=== PATIENT | female | born 1980 | race Caucasian/White ===

== ENCOUNTER 2016-11-04 09:11 | Emergency (ER) | payer SELFPAY ==
[~2016-11-04 09:11] MED LIST: BACT800T5 PO; CEPH-460 PO
[2016-11-04 09:13] VITALS: BP 132/83; PULSE 78; RESP 18; TEMP 98.9; O2SAT 98
[2016-11-04] MEDS ORDERED: KETOROLAC TROMETHAMINE 30 MG/ML (IVP) VIAL IV PUSH ONE (09:30)
[2016-11-04] MEDS ORDERED: SODIUM CHLORID 0.9% 500 ML INJ 500 ML IV ONE ×2 (09:30→11:30)
--- NOTE | 2016-11-04 09:47 | PD ---
HPI Chief Complaint: GI Complaint Time Seen by Provider: 09:19 Travel History International Travel<30 days: No Contact w/Intl Traveler<30days: No Traveled to known affect area: No History of Present Illness HPI Patient is a 36-year-old female who comes in complaining of feeling unwell. She says she has not felt well for most of the week. She reports walking a lot because she has been out of work and looking for job. She says yesterday she felt very nauseous, and then she passed out and [employer]. She denies hitting her head. She says she feels some pain in her throat. She says she has aches all over her body. She had one episode of vomiting yesterday just before the syncopal episode. She denies any abdominal pain. He does report feeling some shortness of breath. She denies any chest pain. She has not had any fevers, but has felt warm. PFSH Past Medical History Bipolar Disorder: Yes Cirrhosis: Yes Hepatitis: Yes (C) Psychiatric: Yes (CHEMICAL IMBALANCE) ?: Not Ovarian Cysts: Yes Past Surgical History Other Surgery: Yes (LEFT OVARIAN CYST) Social History Alcohol Use: Yes (weekly ) Tobacco Use: Yes (1/2 ppd) Substance Use: Yes (marijuana, hx ivdu) Allergies-Medications (Allergen,Severity, Reaction): Coded Allergies: Cymbalta (Verified Allergy, Unknown, 08/05/16) Doxycycline (Verified Allergy, Unknown, 08/05/16) Metrogel (Verified Allergy, Unknown, 08/05/16) Reported Meds & Prescriptions Reported Meds & Active Scripts Active No Active Prescriptions or Reported Medications Review of Systems Except as stated in HPI: all other systems reviewed are Neg General / Constitutional: No: Fever, Chills Eyes: No: Blurred Vision HENT: Positive: Headaches Cardiovascular: No: Chest Pain or Discomfort Respiratory: Positive: Shortness of Breath Gastrointestinal: Positive: Vomiting, No: Abdominal Pain Genitourinary: No: Dysuria Musculoskeletal: Positive: Myalgias, Weakness Skin: No Rash, No Itching, No Change in Pigmentation Neurologic: No: Dizziness Physical Exam Narrative GENERAL: Awake and alert, in no acute distress. SKIN: Warm and dry. HEAD: Atraumatic. Normocephalic. EYES: Pupils equal and round. No scleral icterus. No injection or drainage. ENT: Mucous membranes pink and moist. No tonsillar swelling or exudates. No pharyngeal erythema or edema. NECK: Trachea midline. No JVD. CARDIOVASCULAR: Regular rate and rhythm. No murmur appreciated. RESPIRATORY: No accessory muscle use. Clear to auscultation. Breath sounds equal bilaterally. GASTROINTESTINAL: Abdomen soft, non-tender, nondistended. No fluid wave. MUSCULOSKELETAL: No obvious deformities. No clubbing. No cyanosis. No edema. NEUROLOGICAL: Awake and alert. No obvious cranial nerve deficits. Motor grossly within normal limits. Normal speech. PSYCHIATRIC: Appropriate mood and affect; insight and judgment normal. Data Data Last Documented VS Vital Signs Date Time Temp Pulse Resp B/P Pulse Ox O2 Delivery O2 Flow Rate FiO2 11/04/16 11:00 70 14 125/72 95 Room Air 11/04/16 09:13 98.9 Orders Complete Blood Count With Diff (11/04/16 09:29) Comprehensive Metabolic Panel (11/04/16 09:29) Lipase (11/04/16 09:29) Act Partial Throm Time (Ptt) (11/04/16 09:29) Prothrombin Time / Inr (Pt) (11/04/16 09:29) Troponin I (11/04/16 09:29) Urinalysis - C+S If Indicated (11/04/16 09:29) Ed Urine Pregnancytest Poc (11/04/16 09:29) Chest, Pa & Lat (11/04/16 ) Sodium Chlorid 0.9% 500 Ml Inj (Ns 500 M (11/04/16 09:30) Ketorolac Inj (Toradol Inj) (11/04/16 09:30) Iv Access Insert/Monitor (11/04/16 09:29) Sodium Chlorid 0.9% 500 Ml Inj (Ns 500 M (11/04/16 11:30) Labs Laboratory Tests Test 11/04/16 11/04/16 09:37 09:38 White Blood Count 8.8 TH/MM3 Red Blood Count 4.74 MIL/MM3 Hemoglobin 14.1 GM/DL Hematocrit 40.1 % Mean Corpuscular Volume 84.6 FL Mean Corpuscular Hemoglobin 29.7 PG Mean Corpuscular Hemoglobin 35.1 % Concent Red Cell Distribution Width 13.3 % Platelet Count 202 TH/MM3 Mean Platelet Volume 8.9 FL Neutrophils (%) (Auto) 65.6 % Lymphocytes (%) (Auto) 27.8 % Monocytes (%) (Auto) 5.2 % Eosinophils (%) (Auto) 0.9 % Basophils (%) (Auto) 0.5 % Neutrophils # (Auto) 5.8 TH/MM3 Lymphocytes # (Auto) 2.5 TH/MM3 Monocytes # (Auto) 0.5 TH/MM3 Eosinophils # (Auto) 0.1 TH/MM3 Basophils # (Auto) 0.0 TH/MM3 CBC Comment DIFF FINAL Differential Comment Prothrombin Time 10.5 SEC Prothromb Time International 1.0 RATIO Ratio Activated Partial 27.1 SEC Thromboplast Time Sodium Level 138 MEQ/L Potassium Level 4.0 MEQ/L Chloride Level 103 MEQ/L Carbon Dioxide Level 25.1 MEQ/L Anion Gap 10 MEQ/L Blood Urea Nitrogen 12 MG/DL Creatinine 0.69 MG/DL Estimat Glomerular Filtration 96 ML/MIN Rate Random Glucose 97 MG/DL Calcium Level 8.8 MG/DL Total Bilirubin 0.5 MG/DL Aspartate Amino Transf 32 U/L (AST/SGOT) Alanine Aminotransferase 63 U/L (ALT/SGPT) Alkaline Phosphatase 84 U/L Troponin I LESS THAN 0.02 NG/ML Total Protein 7.3 GM/DL Albumin 3.9 GM/DL Lipase 153 U/L Urine Color LIGHT-YELLOW Urine Turbidity HAZY Urine pH 6.5 Urine Specific [place] 1.006 Urine Protein NEG mg/dL Urine Glucose (UA) NEG mg/dL Urine Ketones NEG mg/dL Urine Occult Blood NEG Urine Nitrite NEG Urine Bilirubin NEG Urine Urobilinogen LESS THAN 2.0 MG/DL Urine Leukocyte Esterase LARGE Urine RBC 2 /hpf Urine WBC 5 /hpf Urine Squamous Epithelial 34 /hpf Cells Urine Transitional Epithelial <1 /hpf Cells Urine Bacteria OCC /hpf Urine Hyaline Casts 1 /lpf Microscopic Urinalysis Comment CULT NOT INDICATED MDM Medical Decision Making Medical Screen Exam Complete: Yes Emergency Medical Condition: Yes Medical Record Reviewed: Yes Interpretation(s) ECG shows normal sinus rhythm at 74, no ST elevation or depression, normal intervals. Differential Diagnosis Dehydration versus viral illness versus gastroenteritis Narrative Course Patient is a 36-year-old female comes in complaining of feeling unwell. Exam shows no acute abnormalities. ECG shows no signs of ischemia or other abnormalities. IV established, labs sent. Labs are within normal limits. Chest x-ray performed shows no acute abnormalities. Patient given IV fluids and Toradol. She states she still feels some soreness in her throat. I explained that her throat appears completely normal. Advised she may be experiencing postnasal drip noted by she can take [id number] allergy medications for this. Patient says she is comfortable to be discharged at this time. Advised to follow-up in the community clinics. Advised to return to the ED as needed for any worsening symptoms. Diagnosis Primary Impression: Viral illness Referrals: [facility] call for appointment [facility] call for appointment Additional Instructions: Drink plenty of fluids. Take Ibuprofen for pain or fever. Try over the counter allergy medications for throat symptoms. Follow up with a primary care physician. Return to the ED as needed for any worsening symptoms. Scripts No Active Prescriptions or Reported Meds Disposition: 01 DISCHARGE HOME Condition: Stable Litzy Whyte MD Nov 04, 2016 09:47
[2016-11-04 10:17] LABS: AUTOMATED NEUTROPHIL # 5.8 TH/MM3 (1.8-7.7); BASOPHIL % 0.5 % (0.0-2.0); EOSINOPHIL # 0.1 TH/MM3 (0-0.4); EOSINOPHIL % 0.9 % (0.0-4.0); HEMATOCRIT 40.1 % (35.0-46.0); HEMO FLAGS DIFF FINAL; LYMPH % 27.8 % (9.0-44.0); LYMPHOCYTE # 2.5 TH/MM3 (1.0-4.8); MEAN CELL VOLUME 84.6 FL (80.0-100.0); MEAN CORPUSCULAR HEMOGLOBIN 29.7 PG (27.0-34.0); MEAN CORPUSCULAR HGB CONC 35.1 % (32.0-36.0); MONO % 5.2 % (0.0-8.0); NEUT % 65.6 % (16.0-70.0); PLATELET COUNT 202 TH/MM3 (150-450); RED BLOOD COUNT 4.74 MIL/MM3 (4.00-5.30); RED CELL DISTRIBUTION WIDTH 13.3 % (11.6-17.2); WHITE BLOOD COUNT 8.8 TH/MM3 (4.0-11.0)
[2016-11-04 10:19] LABS: BACTERIA, URINE OCC /hpf; BLOOD, URINE NEG (NEG); GLUCOSE,URINE NEG (NEG); HYALINE CAST, URINE 1 /lpf (RARE); KETONE, URINE NEG (NEG); NITRITE,URINE NEG (NEG); PH, URINE 6.5 (5.0-8.5); SQUAMOUS EPITHELIAL CELL URINE 34 /hpf (0-5); TRANSITIONAL EPI CELLS, URINE <1 /hpf; URINE COLOR LIGHT-YELLOW (YELLW/STRAW)
[2016-11-04 10:23] LABS: APTT (PATIENT) 27.1 SEC (24.3-30.1); PROTHROMBIN TIME - PATIENT 10.5 SEC (9.8-11.6)
[2016-11-04 10:24] LABS: COMMENT (UR) CULT NOT INDICATED; CULTURE IF INDICATED CULT NOT INDICATED
[2016-11-04 10:38] LABS: ANION GAP 10 MEQ/L (5-15); AST (GOT) 32 U/L (15-37); BICARBONATE 25.1 MEQ/L (21.0-32.0); BLOOD UREA NITROGEN 12 MG/DL (7-18); CHLORIDE 103 MEQ/L (98-107); GLOMERULAR FILTRATION RATE 96 ML/MIN (>89); SODIUM (NA) 138 MEQ/L (136-145)
[2016-11-04 10:43] LABS: ALKALINE PHOSPHATASE 84 U/L (45-117); ALT (GPT) 63 U/L (10-53); TOTAL BILIRUBIN ADULT 0.5 MG/DL (0.2-1.0)
[2016-11-04 11:00] VITALS: BP 125/72; PULSE 70; RESP 14; O2SAT 95
--- NOTE | 2016-11-04 11:05 | RADRPT ---
EXAM DATE/TIME: 11/04/2016 10:17 [facility] COMPARISON: No previous studies available for comparison. INDICATIONS : Short of Breath MEDICAL HISTORY : Hepatitis C. SURGICAL HISTORY : None. ENCOUNTER: Initial ACUITY: 1 day PAIN SCORE: 0/10 LOCATION: Bilateral chest FINDINGS: PA and lateral views of the chest. The lungs are clear. Cardiomediastinal silhouette within normal li mits. No evidence of pleural effusion or pneumothorax. CONCLUSION: No acute cardiopulmonary disease identified. Marquise Cervantes MD on November 04, 2016 at 11:02 Board Certified Radiologist. This report was verified electronically.
[2016-11-04 12:30] VITALS: BP 120/66; PULSE 78; RESP 16; O2SAT 97
--- NOTE | 2016-11-04 16:35 | EKG ---
Date Performed: 11/04/2016 Time Performed: 09:21:49 PTAGE: 36 years EKG: Sinus rhythm POSSIBLE RIGHT VENTRICULAR CONDUCTION DELAY BORDERLINE ECG NO PREVIOUS TRACING DOCTOR: Hugo Mccarthy Interpretating Date/Time 11/04/2016 16:34:03
== END 2016-11-04 12:41 | disposition home or self-care (01) ==
LOC: NEPA 09:11
DX: B34.9 Viral infection, unspecified (principal); F31.9 Bipolar disorder, unspecified; K74.60 Unspecified cirrhosis of liver; F17.210 Nicotine dependence, cigarettes, uncomplicated; F10.10 Alcohol abuse, uncomplicated
CPT/HCPCS: 71020; 80053; 81001; 83690; 84484; 84703; 85025; 85610; 85730; 93005; 96361; 96374; 99284; J1885; J7040

== ENCOUNTER 2016-12-01 00:30 | Emergency (ER) | payer OTHER ==
[2016-12-01 00:48] VITALS: BP 138/78; PULSE 102; RESP 20; TEMP 98; O2SAT 97
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
[2016-12-01] MEDS ORDERED: AMOXICILLIN (TRIHYDRATE) 500 MG CAP PO ONE (01:30)
[2016-12-01] MEDS ORDERED: ACETAMINOPHEN/HYDROcodone 325 MG/5 MG TAB PO ONE ×2 (01:30→03:30)
[2016-12-01] MEDS ORDERED: HYDR-3533 PO (01:35)
[2016-12-01] MEDS ORDERED: AUGM875T PO (01:35)
== END 2016-12-01 04:55 ==
LOC: NEPB 00:30
DX: S02.32XA Fracture of orbital floor, left side, initial encounter for closed fracture (principal); S81.812A Laceration without foreign body, left lower leg, initial encounter; S81.811A Laceration without foreign body, right lower leg, initial encounter; X78.1XXA Intentional self-harm by knife, initial encounter; Y35.893A Legal intervention involving other specified means, suspect injured, initial encounter; Y93.89 Activity, other specified; Y92.009 Unspecified place in unspecified non-institutional (private) residence as the place of occurrence of the external cause
CPT/HCPCS: 12004; 70486